=== PATIENT | female | born 1945 | race Caucasian/White ===

== ENCOUNTER 2018-07-19 14:56 | Emergency (ER) | payer MEDICARE ==
--- NOTE | 2018-07-19 16:04 | ER Report ---
History and Physical Time Seen By MD: 16:05 HPI/ROS CHIEF COMPLAINT: Cough HISTORY OF PRESENT ILLNESS: This is a 73-year-old female presents to the emergency department for a cough. Patient states that she's had this ongoing cough for years, patient has recently traveled to [place] from [place] the cough seems to have increased over the last 2-3 days. Patient has been here for about 7-8 days. If a dry nonproductive cough. Patient denies fevers, chills, nausea or vomiting. Denies shortness of breath. No visual changes, no calf pain or tenderness. REVIEW OF SYSTEMS: Respiratory: As above. Cardiovascular: No chest pain, no palpitations. Gastrointestinal: No vomiting, no abdominal pain. Musculoskeletal: No back pain. Allergies: Coded Allergies: No Known Drug Allergies (Unverified , 07/19/18) Home Meds Active Scripts Albuterol Sulfate (VENTOLIN HFA) 18 Gm Inh, 1-2 PUFF INH 3-4XD PRN for cough, #1 INH 0 Refills Prov:TEDDY HO DATA ANALYSIS INTERN-BC 07/19/18 Past Medical/Surgical History Patient has a past medical and surgical history of mitral valve prolapse, hypertension, nodule on lung, pneumonia, osteopenia, hypothyroidism, depression, anxiety, history of thumb release, tonsillectomy. Reviewed Nurses Notes: Yes Constitutional Vital Sign - Last 24 Hours 07/19/18 07/19/18 07/19/18 15:00 17:21 17:58 Temp 98.4 Pulse 76 81 81 Resp 18 16 18 B/P (MAP) 156/88 140/78 (98) Pulse Ox 89 91 O2 Delivery Room Air Room Air Physical Exam General Appearance: The patient is alert, has no immediate need for airway protection and no current signs of toxicity. Eyes: Pupils equal and round no injection. Respiratory: Chest is non tender, lungs are clear to auscultation, very faint expiratory wheeze in the left upper lobe. Cardiac: regular rate and rhythm. Gastrointestinal: Abdomen is soft and non tender, no masses, bowel sounds normal. Musculoskeletal: Neck: Neck is supple and non tender. Extremities have full range of motion and are non tender. Skin: No rashes or lesions. DIFFERENTIAL DIAGNOSIS: After history and physical exam differential diagnosis was considered for pneumonia, bronchitis, chronic cough, pneumothorax and reactive airway disease. Medical Decision Making EKG/Imaging Imaging Location: [facility] [place] Patient: Zita Kenyon : 1945 Visit/Account:[id number] Date of Sevice: 07/19/2018 Examination: CHEST PA AND LAT Comparison: None. History: Cough. Findings: Mild peribronchial and interstitial thickening. No consolidation or nodule. No pneumothorax, edema, or effusion. Cardiac and hilar contour size is within normal limits. Thoracic spine multilevel degenerative disc disease. IMPRESSION: Mild peribronchial and interstitial thickening suggestive of an acute versus chronic bronchitis or reactive airway disease. No consolidation. Report Dictated By: Christofer Palomo MD at 07/19/2018 5:44 PM Report E-Signed By: Christofer Palomo MD at 07/19/2018 5:45 PM WSN:[id number] ED Course/Re-evaluation ED Course The patient was admitted to room. A history and physical obtained. Temperature diagnoses were considered. A DuoNeb was given which did provide some relief of the cough. Chest x-ray was showing chronic bronchitis, I discussed this with the patient. The patient was given an albuterol MDI. Patient was also instructed to use this as needed for any shortness of breath and cough that she may have when she returns to [place] follow-up with her primary care provider. Return to the ER for any other concerns or worsening symptoms. Patient exposed understanding and was discharged home. Decision to Disposition Date: Jul 19, 2018 Decision to Disposition Time: 17:54 Depart Departure Latest Vital Signs Vital Signs Date Time Temp Pulse Resp B/P (MAP) Pulse Ox O2 Delivery O2 Flow Rate FiO2 07/19/18 17:58 81 18 140/78 (98) 91 Room Air 07/19/18 15:00 98.4 Impression: Primary Impression: Cough Condition: Improved Disposition: HOME OR SELF-CARE New Scripts Albuterol Sulfate (VENTOLIN HFA) 18 Gm Inh 1-2 PUFF INH 3-4XD PRN for cough, #1 INH 0 Refills Prov: TEDDY HO DATA ANALYSIS INTERN-BC 07/19/18 Patient Instructions: Chronic Cough (ED) Additional Instructions: Try the inhaler as needed for your cough. Continue with your regular medications. Be sure to drink plenty of water at this elevation. Get plenty of rest. You could try allergy medications such as Claritin for the cough as well. Follow-up with your primary care provider when he returns to [place]. Return to the ER for any other concerns or worsening symptoms. TEDDY HO DATA ANALYSIS INTERN-BC Jul 19, 2018 16:05
[2018-07-19] MEDS ORDERED: ALBUTEROL/IPRATROPIUM 3 ML NEB NEB ONE (16:40)
[2018-07-19] MEDS ORDERED: ALB18R INH (17:26)
--- NOTE | 2018-07-19 17:48 | RADIOLOGY IMAGING REPORT ---
FACILITY: [facility] PATIENT NAME: Zita Kenyon : 1945 MR: [id number] V: [id number] EXAM DATE: ORDERING PHYSICIAN: TEDDY HO TECHNOLOGIST: [place] [facility] [place] Patient: Zita Kenyon : 1945 Visit/Account:[id number] Date of Sevice: 07/19/2018 Examination: CHEST PA AND LAT Comparison: None. History: Cough. Findings: Mild peribronchial and interstitial thickening. No consolidation or nodule. No pneumothorax , edema, or effusion. Cardiac and hilar contour size is within normal limits. Thoracic spine multilev el degenerative disc disease. IMPRESSION: Mild peribronchial and interstitial thickening suggestive of an acute versus chronic bronchitis or re active airway disease. No consolidation. Report Dictated By: Christofer Palomo MD at 07/19/2018 5:44 PM Report E-Signed By: Christofer Palomo MD at 07/19/2018 5:45 PM WSN:[id number]
[2018-07-19 17:58] VITALS: BP 140/78
== END 2018-07-19 17:59 | disposition home or self-care (01) ==
LOC: ER 15:13
DX: R05 Cough (principal)
CPT/HCPCS: 71046; 94640; 99283; J7620